=== PATIENT | female | born 1945 | race Caucasian/White ===

== ENCOUNTER 2017-02-26 09:34 | Observation (INO) | payer MEDICARE ==
[2017-02-26] VITALS (7 sets, daily range): BP systolic 139–155; BP diastolic 74–93; PULSE 82–114; RESP 18–20; TEMP 98.4–99.1; O2SAT 95–98
[~2017-02-26] VITALS: Ht 157.5 cm; Wt 80.0 kg
[~2017-02-26 09:34] MED LIST: ALPR0.25 PO; AMLO2.5T PO; CEPH250C PO; CYMB60CA PO; HYDR-3516 PO; LOTE20TA PO; MIRA25TA PO; NAPR220T95 PO; OMEP40CA2 PO; ROSU5 PO; TIZA4CAP3 PO; ULTR50TA5 PO
[2017-02-26] MEDS ORDERED: AMLO5TAB2 PO (09:57)
--- NOTE | 2017-02-26 10:21 | PD ---
HPI Chief Complaint: GI Complaint Time Seen by Provider: 10:21 Travel History International Travel<30 days: No Contact w/Intl Traveler<30days: No Traveled to known affect area: No History of Present Illness HPI 71-year-old female came to the emergency room with history of rectal bleeding since past 2 days. Patient says that she is passing blood even when she is not straining today she wanted to go to the bathroom and noticed that the bed was soaked with blood. She was wearing a pad and there was blood on the pad as well. When she was taking shower she noticed blood on the bathtub. No pain except when she tries to have a bowel movement she has some rectal pain. Patient has history of hemorrhoids. She has had a colonoscopy by Dr. Glover 2 years ago. She tried to call the office today and she was told that there was no appointment for today and that's why patient came to the emergency room. No history of nausea vomiting. No history of abdominal pain. She has been little lightheaded and tired lately. Patient was tachycardic in triage. She said she didn't take any of her morning medications. No history of syncopal episode. [facility] Past Medical History Narrative Medical List of her past medical, surgical, social and family history is reviewed from the nursing note. Arthritis: Yes Asthma: No Autoimmune Disease: No Blood Disorders: No Anxiety: Yes Depression: Yes Heart Rhythm Problems: No Cancer: No Cardiac Catheterization: Yes (10/21/11) Cardiovascular Problems: Yes High Cholesterol: Yes Chemotherapy: No Chest Pain: Yes Congestive Heart Failure: No COPD: No Coronary Artery Disease: Yes (HEART BLOCK/ BUNDLE BRANCH LEFT) Diabetes: Yes Patient Takes Glucophage: No Diminished Hearing: No Endocrine: Yes GERD: Yes Genitourinary: No Headaches: Yes Hypertension: Yes Immune Disorder: No Kidney Stones: Yes Musculoskeletal: Yes (RT ROTATOR CUFF SX) Neurologic: Yes (HEADACHES, DEPRESSION, PINCHED NERVE) Psychiatric: Yes Reproductive: No Respiratory: No Immunizations Current: No Myocardial Infarction: No Radiation Therapy: No Sleep Apnea: No Thyroid Disease: No Menopausal: Yes Past Surgical History AICD: No Appendectomy: Yes Cholecystectomy: Yes Coronary Artery Bypass Graft: No Genitourinary Surgery: Yes (REMOVAL OF KIDNEY STONE RIGHT KIDNEY 1974, LITHOTRYPSY 09/17 WITH STENT LEFT) Hysterectomy: Yes Pacemaker: No Tonsillectomy: Yes Other Surgery: Yes Social History Alcohol Use: Yes (OCC) Tobacco Use: No ("3 CIGS A DAY") Substance Use: No Allergies-Medications (Allergen,Severity, Reaction): Coded Allergies: Sulfa (Sulfonamide Antibiotics) (Unverified Allergy, Severe, RASH, 02/26/17 ) codeine (Unverified Adverse Reaction, Severe, VIOLENT VOMITING, 02/26/17) penicillin G (Unverified Adverse Reaction, Intermediate, VIOLENT VOMITING , 02/26/17) Comments List of her allergies reviewed from the nursing note. Reported Meds & Prescriptions Reported Meds & Active Scripts Active Reported Amlodipine (Amlodipine Besylate) 5 Mg Tab 5 Mg PO DAILY Omeprazole 40 Mg Cap 40 Mg PO DAILY Myrbetriq (Mirabegron) 25 Mg Tab 25 Mg PO DAILY Lotensin (Benazepril HCl) 20 Mg Tab 20 Mg PO DAILY Cymbalta DR (Duloxetine HCl) 60 Mg Capdr 60 Mg PO DAILY Crestor (Rosuvastatin Calcium) 5 Mg Tab 0.25 Mg PO DAILY SUNDAY,SUNDAY,SUNDAY Alprazolam 0.25 Mg Tab 0.25 Mg PO BID Narrative Medication List of her home medications reviewed from the nursing note. Review of Systems Except as stated in HPI: all other systems reviewed are Neg Physical Exam Narrative GENERAL: Awake, alert, elderly, moderate distress SKIN: Focused skin assessment warm/dry. HEAD: Atraumatic. Normocephalic. EYES: Pupils equal and round. No scleral icterus. No injection or drainage. ENT: No nasal bleeding or discharge. Mucous membranes pink and moist. NECK: Trachea midline. No JVD. CARDIOVASCULAR: Regular rate and rhythm. No murmur appreciated. RESPIRATORY: No accessory muscle use. Clear to auscultation. Breath sounds equal bilaterally. GASTROINTESTINAL: Abdomen soft, non-tender, nondistended. Hepatic and splenic margins not palpable. Rectal hemorrhoid along with internal hemorrhoid. MUSCULOSKELETAL: No obvious deformities. No clubbing. No cyanosis. No edema. NEUROLOGICAL: Awake and alert. No obvious cranial nerve deficits. Motor grossly within normal limits. Normal speech. PSYCHIATRIC: Appropriate mood and affect; insight and judgment normal. Data Data Last Documented VS Vital Signs Date Time Temp Pulse Resp B/P (MAP) Pulse Ox O2 Delivery O2 Flow Rate FiO2 02/26/17 11:25 91 155/75 (101) 104 147/74 (98) 111 154/93 (113) 02/26/17 11:25 98 Room Air 02/26/17 09:36 99.1 20 Orders Orders Electrocardiogram (02/26/17 ) Basic Metabolic Panel (Bmp) (02/26/17 10:24) Complete Blood Count With Diff (02/26/17 10:24) Prothrombin Time / Inr (Pt) (02/26/17 10:24) Type And Screen (02/26/17 10:24) Ecg Monitoring (02/26/17 10:24) Iv Access Insert/Monitor (02/26/17 10:24) Oximetry (02/26/17 10:24) Sodium Chlor 0.9% 1000 Ml Inj (Ns 1000 M (02/26/17 10:24) Sodium Chloride 0.9% Flush (Ns Flush) (02/26/17 10:30) Sodium Chlorid 0.9% 500 Ml Inj (Ns 500 M (02/26/17 11:30) Orthostatic Vital Signs (02/26/17 11:22) Admit Order (Ed Use Only) (02/26/17 12:12) Place In Observation (02/26/17 ) Code Status (02/26/17 12:11) Vital Signs (Adult) Q4H (02/26/17 12:11) Activity Oob Ad Love (02/26/17 12:11) Medical Billing Supervisor / Telemetry .CONTINUOUS (02/26/17 12:11) Intake + Output BRUCE.QSHIFT (02/26/17 12:11) Notify Dr: Other (02/26/17 12:11) Diet Npo (02/26/17 Lunch) Sodium Chlor 0.9% 1000 Ml Inj (Ns 1000 M (02/26/17 12:11) Sodium Chloride 0.9% Flush (Ns Flush) (02/26/17 12:15) Sodium Chloride 0.9% Flush (Ns Flush) (02/26/17 21:00) Acetaminophen (Tylenol) (02/26/17 12:15) Ondansetron Inj (Zofran Inj) (02/26/17 12:15) Basic Metabolic Panel (Bmp) (02/27/17 06:00) Comprehensive Metabolic Panel (02/27/17 06:00) Creatine Kinase (Cpk) (02/26/17 12:11) Creatine Kinase (Cpk) (02/26/17 18:11) Troponin I (02/26/17 12:11) Troponin I (02/26/17 18:11) Urinalysis - C+S If Indicated (02/26/17 12:11) Pt Request For Service (02/26/17 12:11) Case Management Consult (02/26/17 12:11) Scd Bilateral/Knee High BRUCE.BID (02/26/17 12:11) Naloxone Inj (Narcan Inj) (02/26/17 12:15) Docusate Sodium-Senna (Ann Marie-Colace) (02/26/17 21:00) Magnesium Hydroxide Liq (Milk Of Magnesi (02/26/17 12:15) Sennosides (Senokot) (02/26/17 12:15) Bisacodyl Supp (Dulcolax Supp) (02/26/17 12:15) Lactulose Liq (Lactulose Liq) (02/26/17 12:15) Labs Laboratory Tests Test 02/26/17 10:15 White Blood Count 7.1 TH/MM3 Red Blood Count 5.21 MIL/MM3 Hemoglobin 15.2 GM/DL Hematocrit 45.8 % Mean Corpuscular Volume 87.9 FL Mean Corpuscular Hemoglobin 29.2 PG Mean Corpuscular Hemoglobin Concent 33.2 % Red Cell Distribution Width 14.0 % Platelet Count 211 TH/MM3 Mean Platelet Volume 10.2 FL Neutrophils (%) (Auto) 67.9 % Lymphocytes (%) (Auto) 21.7 % Monocytes (%) (Auto) 7.7 % Eosinophils (%) (Auto) 2.0 % Basophils (%) (Auto) 0.7 % Neutrophils # (Auto) 4.8 TH/MM3 Lymphocytes # (Auto) 1.5 TH/MM3 Monocytes # (Auto) 0.5 TH/MM3 Eosinophils # (Auto) 0.1 TH/MM3 Basophils # (Auto) 0.1 TH/MM3 CBC Comment DIFF FINAL Differential Comment Prothrombin Time 10.6 SEC Prothromb Time International Ratio 1.0 RATIO Blood Urea Nitrogen 15 MG/DL Creatinine 0.84 MG/DL Random Glucose 138 MG/DL Calcium Level 9.2 MG/DL Sodium Level 140 MEQ/L Potassium Level 4.1 MEQ/L Chloride Level 106 MEQ/L Carbon Dioxide Level 26.8 MEQ/L Anion Gap 7 MEQ/L Estimat Glomerular Filtration Rate 67 ML/MIN MDM Medical Decision Making Medical Screen Exam Complete: Yes Emergency Medical Condition: Yes Medical Record Reviewed: Yes Interpretation(s) Twelve-lead EKG was reviewed by me. Normal sinus rhythm, left axis deviation, left bundle branch block, tachycardia. Heart rate of 107 bpm. Differential Diagnosis Bleeding hemorrhoid, rectal bleed Narrative Course 11:28 AM blood test results are back. Patient is not anemic. She was given 1 L of IV fluid bolus after which her resting heart rate has improved. I just ordered orthostatic vital signs and patient's heart rate jumped up by 10 points when she stood up. At this point I decided to admit the patient. I have put a call out for Dr. Glover as well as another 500 ML of fluid bolus. Awaiting for the hospitalist to call back. 11:[address] Glover call back and is aware of patient getting admitted for observation. He'll come to see the patient at some point in the afternoon he said. Procedures EKG Prior to Arrival: No HemaPrompt Point of Care Internal Pos. & Neg. Controls: Passed Fecal Specimen Occult Blood: Positive Physician Communication Physician Communication Dr. Glover Diagnosis Primary Impression: Rectal bleeding Additional Impressions: Hemorrhoid Qualified Codes: K64.9 - Unspecified hemorrhoids Orthostatic hypotension Admitting Information Admitting Physician Requests: Admit Scripts Hydrocortisone Supp (Anusol-Hc Supp) 25 Mg Supp 25 MG RECTAL BID for Hemorrhoids, #10 SUPP Prov: Ruben Reza 02/27/17 Cephalexin (Cephalexin) 250 Mg Cap 250 MG PO DAILY for Infection, #15 CAP 0 Refills Prov: Ruben Reza 02/27/17 Lynne Whitaker MD Feb 26, 2017 10:21
[2017-02-26] MEDS ORDERED: SODIUM CHLOR 0.9% 1000 ML INJ 1,000 ML IV SCH ×2 (10:24→12:11)
[2017-02-26] MEDS ORDERED: SODIUM CHLORIDE 0.9% FLUSH 10 ML FLUSH IVF PRN (10:30)
[2017-02-26 10:47] LABS: AUTOMATED NEUTROPHIL # 4.8 TH/MM3 (1.8-7.7); BASOPHIL # 0.1 TH/MM3 (0-0.2); BASOPHIL % 0.7 % (0.0-2.0); EOSINOPHIL # 0.1 TH/MM3 (0-0.4); HEMATOCRIT 45.8 % (35.0-46.0); HEMO FLAGS DIFF FINAL; LYMPH % 21.7 % (9.0-44.0); LYMPHOCYTE # 1.5 TH/MM3 (1.0-4.8); MEAN CELL VOLUME 87.9 FL (80.0-100.0); MEAN CORPUSCULAR HEMOGLOBIN 29.2 PG (27.0-34.0); MEAN CORPUSCULAR HGB CONC 33.2 % (32.0-36.0); MONO % 7.7 % (0.0-8.0); NEUT % 67.9 % (16.0-70.0); PLATELET COUNT 211 TH/MM3 (150-450); RED BLOOD COUNT 5.21 MIL/MM3 (4.00-5.30); WHITE BLOOD COUNT 7.1 TH/MM3 (4.0-11.0)
[2017-02-26 10:58] LABS: PROTHROMBIN TIME - PATIENT 10.6 SEC (9.8-11.6)
[2017-02-26 11:10] LABS: BICARBONATE 26.8 MEQ/L (21.0-32.0); POTASSIUM 4.1 MEQ/L (3.5-5.1)
[2017-02-26] MEDS ORDERED: SODIUM CHLORID 0.9% 500 ML INJ 500 ML IV ONE (11:30)
[2017-02-26] MEDS ORDERED: BISACODYL 10 MG SUPP RECTAL PRN (12:15)
[2017-02-26] MEDS ORDERED: ACETAMINOPHEN 325 MG TAB PO PRN (12:15)
[2017-02-26] MEDS ORDERED: SENNOSIDES 8.6 MG TAB PO PRN (12:15)
[2017-02-26] MEDS ORDERED: SODIUM CHLORIDE 0.9% FLUSH 10 ML FLUSH IV FLUSH PRN (12:15)
[2017-02-26] MEDS ORDERED: ONDANSETRON HCL 4 MG/2 ML VIAL IVP PRN (12:15)
[2017-02-26] MEDS ORDERED: NALOXONE HCL 0.4 MG/ML AMP IV PUSH PRN (12:15)
[2017-02-26] MEDS ORDERED: LACTULOSE SYRUP 20 GM/30 ML CUP PO PRN (12:15)
[2017-02-26] MEDS ORDERED: MAGNESIUM HYDROXIDE SUSP 30 ML CUP PO PRN (12:15)
--- NOTE | 2017-02-26 12:15 | HHI.HP ---
HPI Service [facility] Primary Care Physician Francisco See MD Admission Diagnosis Diagnoses: Chief Complaint: Rectal Bleed Travel History International Travel<30 Days: No Contact w/Intl Traveler <30 Da: No Traveled to Known Affected Are: No History of Present Illness This is a pleasant 71 y/o Female who came to ER with Rectal Bleed and Orthostatic changes, she has been with this symptoms for the last two days before coming to ER, Patient says that she is passing bloody even when she is not straining today she wanted to go to the bathroom and noticed that the bed was soaked with blood. She was wearing a pad and there was blood on the pad as well. When she was taking shower she noticed blood on the bathtub. No pain except when she tries to have a bowel movement she has some rectal pain. Patient has history of hemorrhoids. She has had a colonoscopy by Dr. Glover 2 years ago. She tried to call the office today and she was told that there was no appointment for today and that's why patient came to the emergency room. No history of nausea vomiting. No history of abdominal pain. She has been little lightheaded and tired lately. Patient was tachycardic in triage. She said she didn't take any of her morning medications. No history of syncopal episode. she was seen in ER discussed with nurse, at this time no complaint she states she uses a walker to leave her house. Review of Systems Constitutional: DENIES: Fever, Chills, Change in appetite Endocrine: DENIES: Heat/cold intolerance Eyes: DENIES: Blurred vision, Eye pain Gastrointestinal: COMPLAINS OF: Bloody stools Except as stated in HPI: all other systems reviewed are Neg Past Family Social History Past Medical History OA Anxiety disorder Depression CAD status post PCI 10/21/11 Hyperlipidemia Heart Block/Bundle branch left DM II GERD Hypertension Rotator cuff surgery on Right Past Surgical History Appendectomy cholecystectomy Kidney stone surgery 1974, Lithotripsy 09/17 with stent left AFTAB Tonsillectomy Reported Medications Reported Meds & Active Scripts Active Reported Amlodipine (Amlodipine Besylate) 5 Mg Tab 5 Mg PO DAILY Cephalexin 250 Mg Cap 250 Mg PO DAILY Omeprazole 40 Mg Cap 40 Mg PO DAILY Myrbetriq (Mirabegron) 25 Mg Tab 25 Mg PO DAILY Lotensin (Benazepril HCl) 20 Mg Tab 20 Mg PO DAILY Cymbalta DR (Duloxetine HCl) 60 Mg Capdr 60 Mg PO DAILY Crestor (Rosuvastatin Calcium) 5 Mg Tab 0.25 Mg PO DAILY SUNDAY,SUNDAY,SUNDAY Alprazolam 0.25 Mg Tab 0.25 Mg PO BID Allergies: Coded Allergies: Sulfa (Sulfonamide Antibiotics) (Unverified Allergy, Severe, RASH, 02/26/17 ) codeine (Unverified Adverse Reaction, Severe, VIOLENT VOMITING, 02/26/17) penicillin G (Unverified Adverse Reaction, Intermediate, VIOLENT VOMITING , 02/26/17) Family History Mother and Sister with Hypertension. Social History Denies any toxic habits. Physical Exam Vital Signs Vital Signs Date Time Temp Pulse Resp B/P (MAP) Pulse Ox O2 Delivery O2 Flow Rate FiO2 02/26/17 11:25 91 155/75 (101) 104 147/74 (98) 111 154/93 (113) 02/26/17 11:25 98 Room Air 02/26/17 09:36 99.1 114 20 139/88 (105) 97 Room Air Physical Exam GENERAL: Awake, alert, elderly, No acute distress. SKIN: Focused skin assessment warm/dry. HEAD: Atraumatic. Normocephalic. EYES: Pupils equal and round. No scleral icterus. No injection or drainage. ENT: No nasal bleeding or discharge. Mucous membranes pink and moist. NECK: Trachea midline. No JVD. CARDIOVASCULAR: Regular rate and rhythm. No murmur appreciated. RESPIRATORY: No accessory muscle use. Clear to auscultation. Breath sounds equal bilaterally. GASTROINTESTINAL: Abdomen soft, non-tender, nondistended. Hepatic and splenic margins not palpable. Rectal hemorrhoid along with internal hemorrhoid. MUSCULOSKELETAL: No obvious deformities. No clubbing. No cyanosis. No edema. NEUROLOGICAL: Awake and alert. No obvious cranial nerve deficits. Motor grossly within normal limits. Normal speech. PSYCHIATRIC: Appropriate mood and affect; insight and judgment normal. Laboratory Laboratory Tests Test 02/26/17 10:15 White Blood Count 7.1 Red Blood Count 5.21 Hemoglobin 15.2 Hematocrit 45.8 Mean Corpuscular Volume 87.9 Mean Corpuscular Hemoglobin 29.2 Mean Corpuscular Hemoglobin Concent 33.2 Red Cell Distribution Width 14.0 Platelet Count 211 Mean Platelet Volume 10.2 Neutrophils (%) (Auto) 67.9 Lymphocytes (%) (Auto) 21.7 Monocytes (%) (Auto) 7.7 Eosinophils (%) (Auto) 2.0 Basophils (%) (Auto) 0.7 Neutrophils # (Auto) 4.8 Lymphocytes # (Auto) 1.5 Monocytes # (Auto) 0.5 Eosinophils # (Auto) 0.1 Basophils # (Auto) 0.1 CBC Comment DIFF FINAL Differential Comment Prothrombin Time 10.6 Prothromb Time International Ratio 1.0 Blood Urea Nitrogen 15 Creatinine 0.84 Random Glucose 138 Calcium Level 9.2 Sodium Level 140 Potassium Level 4.1 Chloride Level 106 Carbon Dioxide Level 26.8 Anion Gap 7 Estimat Glomerular Filtration Rate 67 Result Diagram: 02/26/17 1015 02/26/17 1015 Caprini VTE Risk Assessment Caprini VTE Risk Assessment: Mod/High Risk (score >= 2) Caprini Risk Assessment Model Point Value = 1 Point Value = 2 Point Value = 3 Point Value = 5 Age 41-60 Minor surgery BMI > 25 kg/m2 Swollen legs Varicose veins or History of unexplained or recurrent spontaneous Oral contraceptives or hormone replacement Sepsis (< 1 month) Serious lung disease, including pneumonia (< 1 month) Abnormal pulmonary function Acute myocardial infarction Congestive heart failure (< 1 month) History of inflammatory bowel disease Medical patient at bed rest Age 61-74 Arthroscopic surgery Major open surgery (> 45 min) Laparoscopic surgery (> 45 min) Malignancy Confined to bed (> 72 hours) Immobilizing plaster cast Central venous access Age >= 75 History of VTE Family history of VTE Factor V Leiden Prothrombin [id number] Lupus anticoagulant Anticardiolipin antibodies Elevated serum homocysteine Heparin-induced thrombocytopenia Other congenital or acquired thrombophilia Stroke (< 1 month) Elective arthroplasty Hip, pelvis, or leg fracture Acute spinal cord injury (< 1 month) Prophylaxis Regimen Total Risk Factor Score Risk Level Prophylaxis Regimen 0-1 Low Early ambulation 2 Moderate Order ONE of the following: *Sequential Compression Device (SCD) *Heparin 5000 units SQ BID 3-4 Higher Order ONE of the following medications: *Heparin 5000 units SQ TID *Enoxaparin/Lovenox 40 mg SQ daily (WT < 150 kg, CrCl > 30 mL/min) *Enoxaparin/Lovenox 30 mg SQ daily (WT < 150 kg, CrCl > 10-29 mL/min) *Enoxaparin/Lovenox 30 mg SQ BID (WT < 150 kg, CrCl > 30 mL/min) AND/OR *Sequential Compression Device (SCD) 5 or more Highest Order ONE of the following medications: *Heparin 5000 units SQ TID (Preferred with Epidurals) *Enoxaparin/Lovenox 40 mg SQ daily (WT < 150 kg, CrCl > 30 mL/min) *Enoxaparin/Lovenox 30 mg SQ daily (WT < 150 kg, CrCl > 10-29 mL/min) *Enoxaparin/Lovenox 30 mg SQ BID (WT < 150 kg, CrCl > 30 mL/min) AND *Sequential Compression Device (SCD) Assessment and Plan Assessment and Plan 1. Rectal Bleed discussed with ER specialist Doctor Sherman Keyes and she already discussed with Gastroenterology specialist Doctor he will be in to see patient, the patient is not anemic, received IV fluids, and Orthostatic vital sings, was recommended by Gastroenterology to admit to Observation and he will follow. 2. Orthostatic Hypotension at this time improving, will hold anti hypertensive management by now and follow Cardiac enzymes she has LBBB and left axis deviation on ECG 3. OA by history 4. Anxiety disorder/Depression continue Home medicines 5. CAD status post PCI 10/21/11 6. Hyperlipidemia to continue Statins 7. DM II at this time NPO will continue sliding scale 8. GERD on Protonix. 9. Hypertension on hold anti hypertensives until blood pressure stable. DVT prophylaxis with SCDs contraindicated Chemical prophylaxis in view of rectal Bleed. Code Status Full Code. Discussed Condition With Patient, Nurse and Doctor Lynne Whitaker Guillermo MD Feb 26, 2017 12:15
[2017-02-26] MEDS ORDERED: PANTOPRAZOLE SODIUM 40 MG VIAL IV PUSH SCH (14:00)
--- NOTE | 2017-02-26 14:13 | EKG ---
Date Performed: 02/26/2017 Time Performed: 10:26:13 PTAGE: 71 years EKG: SINUS TACHYCARDIA LEFT BUNDLE BRANCH BLOCK ABNORMAL ECG PREVIOUS TRACING : 06/08/2012 21.46 Compared to previous tracing, left bundle branch block is n ow present. DOCTOR: Ronen Bills Interpretating Date/Time 02/26/2017 14:11:50
[2017-02-26 14:16] LABS: BLOOD, URINE MOD (NEG); GLUCOSE,URINE NEG (NEG); KETONE, URINE NEG (NEG); NITRITE,URINE NEG (NEG); SQUAMOUS EPITHELIAL CELL URINE 3 /hpf (0-5); URINE COLOR YELLOW (YELLW/STRAW)
[2017-02-26 14:17] LABS: COMMENT (UR) CULTURE INDICATED; CULTURE IF INDICATED CULTURE INDICATED
[2017-02-26] MEDS ORDERED: PILL SPLITTER OTHER PRN (14:45)
[2017-02-26 16:36] LABS: CREATINE KINASE 50 U/L (26-192)
[2017-02-26] MEDS: INSULIN NovoLIN REGULAR SUPPLEMENTAL SCALE SQ SCH ×2 (17:00→21:00)
[2017-02-26 20:10] LABS: CREATINE KINASE 65 U/L (26-192)
[2017-02-26] MEDS: DOCUSATE SODIUM 50 MG/SENNA 8.6 MG TAB PO SCH (21:00)
[2017-02-26] MEDS: ALPRAZolam 0.25 MG TAB PO SCH (21:22)
[2017-02-26] MEDS: SODIUM CHLORIDE 0.9% FLUSH 10 ML FLUSH IV FLUSH SCH (21:22)
[2017-02-27] VITALS (8 sets, daily range): BP systolic 118–173; BP diastolic 66–87; PULSE 80–100; RESP 12–20; TEMP 98.1–98.2; O2SAT 95–98
[2017-02-27 08:01] LABS: ALKALINE PHOSPHATASE 119 U/L (45-117); TOTAL BILIRUBIN ADULT 0.4 MG/DL (0.2-1.0)
[2017-02-27 08:06] LABS: ALT (GPT) 48 U/L (10-53); ANION GAP 7 MEQ/L (5-15); AST (GOT) 29 U/L (15-37); BICARBONATE 25.4 MEQ/L (21.0-32.0); BLOOD UREA NITROGEN 12 MG/DL (7-18); CHLORIDE 109 MEQ/L (98-107); GLOMERULAR FILTRATION RATE 77 ML/MIN (>89); POTASSIUM 4.3 MEQ/L (3.5-5.1); SODIUM (NA) 141 MEQ/L (136-145)
[2017-02-27] MEDS ORDERED: HYDROCORTISONE ACETATE 25 MG SUPP RECTAL SCH (09:00)
[2017-02-27] MEDS ORDERED: DULoxetine HCl DR 60 MG CAP PO SCH (09:00)
[2017-02-27] MEDS ORDERED: ROSUVASTATIN CALCIUM 5 MG TAB PO SCH (09:00)
[2017-02-27] MEDS ORDERED: ROSUVASTATIN 5 MG PO SCH ×2 (09:00)
--- NOTE | 2017-02-27 09:08 | HHI.PR ---
Subjective Remarks Follow-up for rectal bleeding. The patient states she continues to have rectal bleeding today. She had one episode of diarrhea last night, none today. She states she was seen by her colorectal surgeon, Dr. Glover, and says he told her if her hemoglobin was stable he would rather have her follow-up in the office than do surgery on her bleeding hemorrhoid. She has noticed bilateral groin pain. Incontinent at baseline. History of frequent UTIs, previously on Keflex daily for prophylaxis. Objective Vitals Vital Signs Date Time Temp Pulse Resp B/P (MAP) Pulse Ox O2 Delivery O2 Flow Rate FiO2 02/27/17 07:34 98.2 98 20 140/66 (90) 96 166/87 (113) 161/85 (110) 02/27/17 04:57 98.2 87 12 132/77 (95) 98 02/27/17 04:10 80 02/27/17 00:47 98.1 90 17 118/72 (87) 96 02/27/17 00:30 82 02/26/17 21:00 99 02/26/17 19:33 98.4 101 19 154/83 (106) 97 02/26/17 18:00 91 02/26/17 17:38 98.4 82 20 152/82 (105) 96 02/26/17 17:28 02/26/17 14:00 95 18 144/80 (101) 95 Room Air 02/26/17 11:25 91 155/75 (101) 104 147/74 (98) 111 154/93 (113) 02/26/17 11:25 98 Room Air 02/26/17 09:36 99.1 114 20 139/88 (105) 97 Room Air I/O 02/26/17 02/26/17 02/26/17 02/27/17 02/27/17 02/27/17 07:00 15:00 23:00 07:00 15:00 23:00 # Voids 1 1 Result Diagram: 02/26/17 1015 02/27/17 0610 Objective Remarks GENERAL: Well-developed well-nourished. In no acute distress. SKIN: Warm and dry. No lesions noted. HEENT: Normocephalic. Pupils equal and round. Mucous membranes pink and moist. CARDIOVASCULAR: Regular rate and rhythm. No murmur appreciated. RESPIRATORY: No accessory muscle use. Clear to auscultation. Breath sounds equal bilaterally. GASTROINTESTINAL: Abdomen soft, non-tender, nondistended. Bowel sounds x4. MUSCULOSKELETAL: No obvious deformities. No clubbing or cyanosis. No edema. NEUROLOGICAL: Awake and alert. No focal neurological deficits. Moves upper and lower extremities spontaneously. Normal speech. PSYCHIATRIC: Appropriate mood and affect; insight and judgment normal. A/P Assessment and Plan 71-year-old female with a past medical history of hemorrhoids, CAD, HTN, anxiety , GERD, chronic UTIs and urinary incontinence who presented with rectal bleeding Rectal bleeding: Likely hemorrhoidal. Hemoglobin stable at 15.2. Patient's colorectal surgeon, Dr. Glover, has evaluated the patient and started steroid suppository, appreciate specialists input. Follow-up hemoglobin today. UTI: Chronic incontinence. History of recurrent UTIs. UA with evidence of possible UTI. Patient complains of bilateral groin discomfort, unclear if this is referred pain from hemorrhoid or UTI. Afebrile with no leukocytosis. Give IV Rocephin 1 and continue course of Keflex. May need follow-up with PCP for final urine culture results. Other chronic medical conditions include HTN, HLD, CAD, anxiety/depression, GERD : Stable at this time and will continue home medications as indicated. DVT prophylaxis: SCDs. No chemical prophylaxis with bleeding. Discharge Planning Discussed with RN, she states she received instructions from Dr. Glover that the patient could be discharged on steroid suppository for follow-up with him if hemoglobin was normal today. Hemoglobin is within normal limits at 14.3. Discharge home today with prescription for Keflex and hydrocortisone suppository. Ruben Reza Feb 27, 2017 09:08
[2017-02-27] MEDS ORDERED: cefTRIAXone INJ 1,000 MG in SODIUM CHLORIDE 0.9% INJ 100 ML IV SCH (10:00)
[2017-02-27] MEDS: SODIUM CHLORIDE 0.9% FLUSH 10 ML FLUSH IV FLUSH SCH (10:00)
[2017-02-27] MEDS: DOCUSATE SODIUM 50 MG/SENNA 8.6 MG TAB PO SCH (10:01)
[2017-02-27] MEDS: ALPRAZolam 0.25 MG TAB PO SCH (10:01)
[2017-02-27 10:24] LABS: HEMATOCRIT 41.8 % (35.0-46.0); MEAN CORPUSCULAR HEMOGLOBIN 30.1 PG (27.0-34.0); MEAN CORPUSCULAR HGB CONC 34.2 % (32.0-36.0); PLATELET COUNT 172 TH/MM3 (150-450); RED BLOOD COUNT 4.75 MIL/MM3 (4.00-5.30); RED CELL DISTRIBUTION WIDTH 13.7 % (11.6-17.2); REVIEW FLAG FINAL; WHITE BLOOD COUNT 6.3 TH/MM3 (4.0-11.0)
[2017-02-27] MEDS ORDERED: ANUS25SU RECTAL (12:10)
[2017-02-27] MEDS ORDERED: CEPH250C PO (12:10)
== END 2017-02-27 17:14 | disposition home or self-care (01) ==
LOC: NEPD 09:34 → NEDA 12:15 → NEPHCDU 17:33
PROVIDERS: ADMIT Internal Medicine; ATTEND Internal Medicine
DX: K64.8 Other hemorrhoids (principal); R82.99 Other abnormal findings in urine; I95.1 Orthostatic hypotension; R00.0 Tachycardia, unspecified; R42 Dizziness and giddiness; I25.10 Atherosclerotic heart disease of native coronary artery without angina pectoris; E11.9 Type 2 diabetes mellitus without complications; E78.5 Hyperlipidemia, unspecified; R94.31 Abnormal electrocardiogram [ECG] [EKG]; K21.9 Gastro-esophageal reflux disease without esophagitis; I44.7 Left bundle-branch block, unspecified; F41.8 Other specified anxiety disorders; I10 Essential (primary) hypertension; Z87.440 Personal history of urinary (tract) infections; Z98.61 Coronary angioplasty status; R32 Unspecified urinary incontinence
CPT/HCPCS: 80048; 80053; 81001; 82550; 82948; 84484; 85025; 85027; 85610; 86850; 86900; 86901; 87086; 93005; 96361; 96365; 96375; 97161; 99285; C9113; G0378; G8987; G8988; J0696; J7030; J7040